=== PATIENT | male | born 1960 | race Caucasian/White ===

== ENCOUNTER 2017-05-05 16:36 | Observation (INO) | payer OTHER ==
--- NOTE | 2017-05-05 16:46 | EDPHY ---
H & P HPI/ROS: HPI CHIEF COMPLAINT: Near-syncope, iron-man HISTORY OF PRESENT ILLNESS: This patient otherwise healthy 56-year-old male, denies any significant medical history does take 5 mg of Lipitor daily, and tells me that he had elevated calcium score and a heart scan, no history of VA or cardiac disease, no history of stroke, he presents to the emergency room by EMS after he had a near syncopal episode while competing in the iron man. Patient is from [place]. Presents emergency room states that he was just about finishing the bike portion of the arm and he felt very lightheaded with nausea. No chest pain or shortness of breath. He had to get off his bike and took a brief break. Got back on his bike felt very lightheaded and had to sit down. He denies syncope. Denies full LOC. Denies chest pain or shortness of breath. Does tell me feels fatigued and nauseous. He did receive 6.25 mg IV Phenergan around. He also received 500 cc of normal saline EN route. Upon arrival to the emergency room the patient tells me is cold otherwise has no focal complaints denies chest pain or shortness of breath. Past Medical History: High calcium score, takes Lipitor. Past Surgical History: Denies recent surgical history Social History: From [place], denies drugs alcohol tobacco products, at bedside. Family History: Noncontributory ROS REVIEW OF SYSTEMS: A comprehensive 10 point review of systems is otherwise negative aside from elements mentioned in the history of present illness. Exam Constitutional appears well nontoxic, triage nursing summary reviewed, vital signs reviewed, awake/alert. Eyes normal conjunctivae and sclera, EOMI, PERRLA. HENT normal inspection, atraumatic, moist mucus membranes, no epistaxis, neck supple/ no meningismus, no raccoon eyes. Respiratory clear to auscultation bilaterally, normal breath sounds, no respiratory distress, no wheezing. Cardiovascular rate normal, regular rhythm, no murmur, no edema, distal pulses normal. Gastrointestinal soft, non-tender, no rebound, no guarding, normal bowel sounds, no distension, no pulsatile mass. Genitourinary no CVA tenderness. Musculoskeletal no midline vertebral tenderness, full range of motion, no calf swelling, no tenderness of extremities, no meningismus, good pulses, neurovascularly intact. Skin pink, warm, & dry, no rash, skin atraumatic. Neurologic awake, alert and oriented x 3, AAOx3, moves all 4 extremities equally, motor intact, sensory intact, CN II-XII intact, normal cerebellar, normal vision, normal speech. Psychiatric normal mood/affect. Heme/Lymph/Immune no lymphadenopathy. Differential Diagnosis: Includes but is not limited to in a particular order, electrolyte disturbance, hyponatremia, potassium a abnormality, rhabdomyolysis with elevated CK, dehydration, prerenal renal failure, acute kidney injury, elevated troponin Medical Decision Making: Plan for this patient hold IV fluids at this time he did receive IV fluids 500 cc in route. Check a sodium, check electrolytes, CK, troponin, EKG. Re-evaluation: EKG interpretation by me on record in [employer] system. Impression time of EKG 1645, sinus rhythm rate of 60, the EKG is reading ST elevations ingestion pericarditis, I do not appreciate acute ST elevation VA. There is subtle ST elevation throughout all leads. Otherwise no acute ischemia. No reciprocal changes. Intervals are appropriate. This EKG was done while this patient does not have any chest pain or shortness of breath. 1731: This patient is noted to have an elevated troponin. Most likely demand ischemia due to iron man. He has no chest pain or shortness of breath. His EKG does not indicate acute ischemia. Chest x-ray reviewed is unremarkable. Potassium is elevated due to dehydration. He is receiving 1 L fluid here at this time. Will keep on monitoring manager. Patient will need admission for dehydration, acute kidney injury, elevated troponin, hyperkalemia. 1750: Plan for this patient IV hydration. Repeat BMP. Most likely due to hyperkalemia due to dehydration. Elevated troponin most likely demand ischemia. He has no chest pain or shortness of breath. Patient admitted to Dr. Almeida for gentle IV hydration overnight. Source: Patient, Family, EMS Constitutional: Initial Vital Signs Temperature (C) 36.6 C 05/05/17 16:43 Heart Rate 75 05/05/17 16:43 Respiratory Rate 16 05/05/17 16:43 Blood Pressure 121/62 H 05/05/17 16:43 O2 Sat (%) 98 05/05/17 16:43 O2 Delivery Mode Room Air O2 (L/minute) 2 Allergies/Adverse Reactions: codeine Allergy (Verified 05/05/17 16:42) Home Medications: Medication Instructions Recorded Aspirin EC [Aspirin EC 81 mg (*)] 81 mg PO DAILY 05/05/17 Atorvastatin Calcium [Lipitor 10 5 mg PO DAILY 05/05/17 mg (*)] Medical Decision Making - Data Points Laboratory Results: Laboratory Results 05/05/17 16:51 05/05/17 16:51 Medications Given: Discontinued Medications Aspirin (Aspirin) 81 mg PO ONCE ONE Stop: 05/05/17 18:31 Last Admin: 05/05/17 20:10 Dose: 81 mg Aspirin Buffered (Aspirin Ec) 81 mg PO DAILY JEROME Stop: 11/02/17 08:59 Last Admin: 05/06/17 09:19 Dose: 81 mg Sodium Chloride (Ns) 1,000 mls @ 0 mls/hr IV ONCE ONE PRN Reason: Wide Open Stop: 05/05/17 17:23 Last Admin: 05/05/17 17:27 Dose: 1,000 mls Sodium Chloride (Ns) 1,000 mls @ 125 mls/hr IV CONT JEROME Stop: 11/01/17 18:29 Last Admin: 05/05/17 20:14 Dose: 1,000 mls Sodium Chloride (Ns) 1,000 mls @ 0 mls/hr IV ONCE ONE PRN Reason: Wide Open Stop: 05/05/17 19:16 Last Admin: 05/05/17 19:21 Dose: 1,000 mls Departure - Departure Disposition: [facility] Inpatient Acute Clinical Impression: Dehydration, Elevated troponin, JANNIE (acute kidney injury), Hyperkalemia Condition: Good
--- NOTE | 2017-05-05 16:48 | CPEKG ---
Heart Rate: 60 RR Interval: 1000 P-R Interval: 144 QRSD Interval: 104 QT Interval: 424 QTC Interval: 424 P Fairbanks: 65 QRS [place]banks: 87 T Wave Fairbanks: 27 EKG Severity - ABNORMAL ECG - EKG Impression: SINUS RHYTHM EKG Impression: ST ELEVATION SUGGESTS PERICARDITIS Electronically Signed By: Julio Cesar Lofton 05-May-2017 22:55:14
[2017-05-05 17:00] LABS: % IMMATURE GRANULYOCYTES 0.4 % (0.0-1.1); ABSOLUTE IMMATURE GRANULOCYTES 0.07 10^3/uL (0.00-0.10); ADD DIFF? NO; ADD MORPH? NO; ADD SCAN? NO; ATYPICAL LYMPHOCYTE FLAG 0 (0-99); FRAGMENT RBC FLAG 0 (0-99); HEMATOCRIT 44.1 % (40.0-51.0); HEMOGLOBIN 15.3 g/dL (13.7-17.5); LEFT SHIFT FLG 0 (0-99); LIPEMIA HEMOLYSIS FLAG 90 (0-99); MEAN CELL HEMOGLOBIN 32.3 pg (27.9-34.1); MEAN CELL HEMOGLOBIN CONCENTR. 34.7 g/dL (32.4-36.7); MEAN PLATELET VOLUME 10.3 fL (8.7-11.7); PLATELET CLUMPS FLAG 0 (0-99); PLATELET COUNT 206 10^3/uL (150-400); RED BLOOD CELL COUNT 4.74 10^6/uL (4.40-6.38)
[2017-05-05 17:13] LABS: ALANINE AMINOTRANSFERASE 53 IU/L (21-72); ALBUMIN 4.2 g/dL (3.5-5.0); ALKALINE PHOSPHATASE 70 IU/L (38-126); ANION GAP 16 mEq/L (8-16); ASPARTATE AMINOTRANSFERASE 43 IU/L (17-59); BILIRUBIN-CONJUGATED 0.2 mg/dL (0.0-0.5); BILIRUBIN-UNCONJUGATED 1.8 mg/dL (0.0-1.1); CALCIUM 9.9 mg/dL (8.5-10.4); CARBON DIOXIDE 17 mEq/l (22-31); CHLORIDE 103 mEq/L (97-110); CREATININE 1.2 mg/dL (0.7-1.3); GLOMERULAR FILTRATION RATE > 60; GLUCOSE 85 mg/dL (70-100); MAGNESIUM 1.8 mg/dL (1.6-2.3); POTASSIUM 6.1 mEq/L (3.5-5.2); SODIUM 136 mEq/L (134-144); TOTAL PROTEIN 6.8 g/dL (6.3-8.2)
[2017-05-05 17:19] LABS: APTT 21.3 SEC (23.0-38.0); INR 1.14 (0.83-1.16); PROTIME(PATIENT) 14.5 SEC (12.0-15.0)
[2017-05-05] MEDS ORDERED: NS 1,000 ML IV ONE ×2 (17:22→19:15)
[2017-05-05 17:32] LABS: TROPONIN I 0.035 ng/mL (0-0.034)
[2017-05-05 17:39] LABS: CK-MB INTERPRETATION NEGATIVE (NEGATIVE)
[2017-05-05 17:41] LABS: CREATINE KINASE-MB FRACTION 4.83 ng/mL (0-3.19)
[2017-05-05] MEDS ORDERED: ONDANSETRON DISINTEGRATING 4 MG TAB PO PRN (18:16)
[2017-05-05] MEDS ORDERED: ACETAMINOPHEN 325 MG TAB PO PRN (18:16)
[2017-05-05] MEDS ORDERED: ONDANSETRON 4 MG/2 ML VIAL IVP PRN (18:16)
[2017-05-05] MEDS ORDERED: ASPIRIN 81 MG CHEWABLE TAB PO ONE (18:30)
[2017-05-05] MEDS ORDERED: NS 1,000 ML IV SCH (18:30)
--- NOTE | 2017-05-05 19:05 | GHP ---
[f rep st] HISTORY AND PHYSICAL DATE OF ADMISSION: 05/05/2017 HISTORY OF PRESENT ILLNESS: This patient is a pleasant 56-year-old gentleman with a history of hype rlipidemia and possible high calcium score, who participated in the [employer] today. He felt good on the bike, but then during the cycling portion he felt poorly. He took a break and then tried to go a little further, but he could not. He felt lightheaded. He did not have palpitations. He did no t have chest pain, arm pain or jaw pain. He is noted to have a history of anginal symptoms. His ca lcium score was obtained after he decided to do the [employer], his urged him, and he was found t o have a calcium score. He does not anginal symptoms with exercise. His father had sudden cardiac . He has no heart failure symptoms. Currently, he is chest pain-free. He is fatigued and a bit out of it, but otherwise doing okay. He denies confusion. REVIEW OF SYSTEMS: A complete 10-point review of systems was conducted and is negative, except as n oted in the HPI. PAST MEDICAL HISTORY: Hyperlipidemia, CAD by CT coronary angiography. ALLERGIES: Codeine. HOME MEDICATIONS: Atorvastatin. SOCIAL HISTORY: He lives in [place]. He does not smoke cigarettes or drink much alcohol. FAMILY HISTORY: As in the HPI. PHYSICAL EXAMINATION: VITAL SIGNS: Temp 36.6, blood pressure 121/62, pulse 75, breathing 16 times a minute, 98% on room air. GENERAL: No acute distress, sunburned. HEENT: Sclerae anicteric. Korina pharynx clear. Mucous membranes are moist. NECK: Supple, without lymphadenopathy or JVD. LUNGS: Clear to auscultation bilaterally. HEART: S1 and S2, without murmurs. ABDOMEN: Soft, nontender, nondistended. LOWER EXTREMITIES: Without edema. Calves are nontender. SKIN: Without rash. MARTINA ROLOGIC: Nonfocal. LABORATORY DATA: Sodium 136, potassium 6.1, chloride 103, bicarb 17, BUN 28, creatinine 1.2, glucos e is 85. Total bilirubin is 2.0, ALT 43, ALT 53, alkaline phosphatase 70. CK is 414, troponin is 0 .035, BNP is 86. INR is 1.14. White count 16.5, hematocrit 44, platelets are 206,000. IMAGING: Chest x-ray interpreted by me shows no acute cardiopulmonary disease. EKG interpreted by me shows sinus at 60 with normal axis and intervals. There are some peaked T-waves in V4 and V5. N o prior for comparison. I discussed the case Dr. Julio Cesar Lofton. ASSESSMENT AND PLAN: A 56-year-old gentleman who presents with presyncope and hyperkalemia. 1. Hyperkalemia. This is probably secondary to a combination of being prerenal as well as possibly some potassium containing sports drinks. We will follow him on telemetry. No specific interventio n is warranted. 2. Acute kidney injury. This is mild. People who do Iron Man triathlons are dehydrated when they finish. 3. Presyncope. I suspect he was volume depleted and fatigued. We will follow him on telemetry. 4. Indeterminate troponin. This is very weakly positive. We will cycle it. If it rises to a sign ificant level, we can recommend outpatient followup. We will follow him on telemetry. 5. Prophylaxis. Low risk. /[id number]/MODL
[2017-05-05 19:10] LABS: ANION GAP 10 mEq/L (8-16); CALCIUM 8.7 mg/dL (8.5-10.4); CARBON DIOXIDE 20 mEq/l (22-31); CHLORIDE 105 mEq/L (97-110); CREATININE 1.1 mg/dL (0.7-1.3); GLOMERULAR FILTRATION RATE > 60; GLUCOSE 73 mg/dL (70-100); POTASSIUM 5.1 mEq/L (3.5-5.2); SODIUM 135 mEq/L (134-144)
[2017-05-06 05:16] LABS: ANION GAP 6 mEq/L (8-16); CALCIUM 8.5 mg/dL (8.5-10.4); CARBON DIOXIDE 22 mEq/l (22-31); CHLORIDE 109 mEq/L (97-110); CREATININE 1.2 mg/dL (0.7-1.3); GLOMERULAR FILTRATION RATE > 60; GLUCOSE 96 mg/dL (70-100); POTASSIUM 4.5 mEq/L (3.5-5.2); SODIUM 137 mEq/L (134-144)
[2017-05-06 07:12] VITALS: BP 102/63; PULSE 66; RESP 14; TEMP 98.3; O2SAT 98
[2017-05-06] MEDS ORDERED: ASPIRIN EC 81 MG TAB PO SCH (09:00)
--- NOTE | 2017-05-06 09:41 | PDDCSUM ---
Discharge Summary Discharge Summary: Dates of service 05/05-05/06/17 Discharge diagnosis: # presyncope # hyperkalemia # dehydration # indeterminate troponin Consultations/procedures: none Hospital course: # presyncope: in setting of dehydration related to competing in [employer], no recurrence post hydration, worked up for ACS and monitored on tele--one mildly elevated trop, no events on tele, no further w/u at this point # hyperkalemia: related to dehydration and resolved # indeterminate trop: mild elevation, trended down immediately, suspect cardiac strain from significant exertion and dehydration Dc home > 35 min spent in dc of patient more than half in face to face counseling regarding dx and f/u plans
== END 2017-05-06 11:15 | disposition home or self-care (01) ==
LOC: F2W 19:31
PROVIDERS: ADMIT Internal Medicine; ATTEND Internal Medicine
DX: E87.5 Hyperkalemia (principal); E86.0 Dehydration; R55 Syncope and collapse; N17.9 Acute kidney failure, unspecified
CPT/HCPCS: 71010; 93005; G0378